=== PATIENT | male | born 1930 | race Caucasian/White ===

== ENCOUNTER 2017-02-21 15:30 | Observation (INO) | payer MEDICARE ==
[~2017-02-21] VITALS: Ht 180.3 cm; Wt 95.9 kg
[~2017-02-21 15:30] MED LIST: CALC300T5 PO; CHOL10002 PO; CIPR500T86 PO; HYDR-3101 PO; INSU100V8 SQ; METF500T4 PO; RAMI5CAP21 PO; TAMS-14 PO; VIT1CAPS40 PO
--- NOTE | 2017-02-21 15:41 | NUR ---
ARRIVAL PATIENT TO ER ROOM 3 WITH COMPLAINTS OF SUPRAPUBIC ABDOMINAL PAIN DR HERNANDEZ AT BEDSIDE
--- NOTE | 2017-02-21 15:57 | ER.PDOC ---
General Chief Complaint: Abdomen Pain Stated Complaint: LOWER ABD PAIN Time seen by MD: 16:00 Source: patient History of Present Illness Timing/Duration: 24 hours Severity/Quality: moderate Radiation: no radiation Associated Symptoms: denies symptoms Allergies: Coded Allergies: No Known Allergies (Unverified , 02/01/14) Home Meds Active Scripts Hydrocodone Bit/Acetaminophen (NORCO 7.5-325) 1 Each Tablet, 1 EACH PO Q4H Y for PAIN, #10 TAB Prov:KAIT DE SOUZA MD 02/23/14 Ciprofloxacin Hcl (CIPRO) 500 Mg Tablet, 1 TAB PO BID, #20 TAB Prov:KAIT DE SOUZA MD 02/23/14 Reported Medications Vit C/E/Zn/Coppr/Lutein/Zeaxan (Preservision Areds 2 Softgel) 1 Each Capsule, 1 EACH PO BID, CAPSULE 02/01/14 Metformin Hcl (METFORMIN HCL) 500 Mg Tablet, 1 TAB PO BID, #60 TAB 3 Refills 02/01/14 Ramipril 5MG (ALTACE 5MG) 5 Mg Capsule, 5 MG PO HS, CAPSULE 02/01/14 Cholecalciferol (Vitamin D3) (VITAMIN D) 1,000 Unit Tablet, 1000 UNIT PO DAILY, TABLET 02/01/14 Calcium Carbonate (TUMS) 300 Mg Tab.chew, 500 MG PO QID Y for INDIGESTION, TAB.CHEW 02/01/14 Tamsulosin Hcl (FLOMAX) 0.4 Mg Cap.er.24h, 0.4 MG PO DAILY 02/01/14 Insulin Glargine,Hum.rec.anlog (LANTUS) 100 Unit/1 Ml Vial, 25 UNIT SQ HS, VIAL 02/01/14 Vital Signs First Vital Signs Date Time Temp Pulse Resp B/P (MAP) Pulse Ox O2 Delivery O2 Flow Rate FiO2 02/21/17 15:41 88 18 95 02/21/17 15:44 183/89 (120) Last Vital Signs Date Time Temp Pulse Resp B/P (MAP) Pulse Ox O2 Delivery O2 Flow Rate FiO2 02/21/17 15:44 88 18 183/89 (120) 95 Past Medical History Medical History: diabetes, hypertension Social History Smoking: other Alcohol Use: none Drug Use: none Constitutional: no symptoms reported EENTM: no symptoms reported Respiratory: no symptoms reported Cardiovascular: no symptoms reported Gastrointestinal: see HPI Musculoskeletal: no symptoms reported Skin: no symptoms reported Psychiatric/Neurological: no symptoms reported All Other Systems: Reviewed and Negative Physical Exam General Appearance: No Apparent Distress, WD/WN HEENT: PERRL/EOMI, Normal ENT Inspection, TMs Normal, Pharynx Normal Neck: Non-Tender, Full Range of Motion, Supple, Normal Inspection Respiratory: chest non-tender, lungs clear, normal breath sounds, no respiratory distress, no accessory muscle use Cardiovascular: Normal Peripheral Pulses, Regular Rate, Rhythm, No Edema, No Gallop, No JVD, No Murmur Gastrointestinal: Normal Bowel Sounds, Non Tender, Soft Back: Normal Inspection, No CVA Tenderness, No Vertebral Tenderness Extremities: Normal Range of Motion, Non-Tender, Normal Inspection, No Pedal Edema, No Calf Tenderness, Normal Capillary Refill, Pelvis Stable 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
[2017-02-21] MEDS ORDERED: NORCO 10-325 TABLET PO PRN (16:00)
[2017-02-21 16:09] LABS: BASOPHIL % 0.4 % (0.0-0.2); EOSINOPHIL # 0.1 10^3/uL (0.0-0.2); EOSINOPHIL % 0.5 % (0.0-5.0); LYMPHOCYTES # 1.5 10^3/uL (1.0-4.8); LYMPHOCYTES % 13.8 % (24.0-44.0); MEAN CELL HGB CONCENTRATION 33.5 g/dL (33-37); MEAN CORP VOLUME 89.5 fL (78-100); MEAN PLATELET VOLUME 10.8 fL (7.8-11.0); MONOCYTES # 1.1 10^3/uL (0.3-0.8); MONOCYTES % 10.2 % (5.0-12.0); NEUTROPHIL # 8.3 10^3/uL (1.8-7.7); NEUTROPHILS % 74.8 % (41.0-85.0); RED CELL DISTRIBUTION WIDTH 13.3 % (11.5-14.5); WHITE BLOOD CELL 11.1 10^3/uL (4.5-11.0)
--- NOTE | 2017-02-21 16:10 | NUR ---
CT PATIENT TO RADIOLOGY FOR CT
[2017-02-21] MEDS ORDERED: NORCO 10-325 TABLET PO ONE (16:24)
[2017-02-21 16:25] LABS: CALCIUM 9.3 mg/dL (8.4-10.5); CARBON DIOXIDE 27.1 mmol/L (20.0-32)
--- NOTE | 2017-02-21 16:55 | DIREP ---
PROCEDURE:CT ABDOMEN/PELVIS W/O CONTRAST COMPARISON:None. INDICATIONS:LLQ PAIN TECHNIQUE:Axial images were created through the abdomen and pelvis without intravenous contrast material. No oral contrast was administered. Sagittal and coronal reconstructions were performed from source images. FINDINGS: LUNG BASES:Coronary artery calcium and/or stents LIVER:Normal. No significant liver lesions are identified. BILIARY:Normal. No visible dilatation or calcification. PANCREAS:Normal. No lesion, fluid collection, ductal dilatation, or atrophy. SPLEEN:Normal. No enlargement or focal lesion. ADRENALS:Normal. No mass or enlargement. URINARY TRACT:Mild left hydronephrosis AORTA/VASCULAR:Normal. No aneurysm. RETROPERITONEUM:Normal. No mass or adenopathy. BOWEL/MESENTERY: Nonspecific increased density in the mesenteric fat with few nonenlarged lymph nodes ABDOMINAL WALL:Normal. No mass or hernia. PELVIC ORGANS: The transverse diameter of the prostate is 6.8 cm BONES:Degenerative change in the lumbar spine without lytic or sclerotic bone lesion. Right hip prosthesis OTHER:Negative. CONCLUSION: 1. Mild left hydronephrosis. No obstructing stone is identified. The prostate is enlarged. 2. There is colonic diverticulosis without evidence of diverticulitis. 3. Mild region of increased density in the mesenteric fat with few nonenlarged lymph nodes. This could be related to acute or chronic inflammatory process. Dictated by: Hardeep Goldman Jr. on 02/21/2017 at 04:47 PM
--- NOTE | 2017-02-21 17:30 | NUR ---
dr hinds on phone with dr bell
[2017-02-21] MEDS ORDERED: MORPHINE SULFATE IV PRN (18:00)
[2017-02-21 19:00] LABS: BILIRUBIN,URINE NEGATIVE (NEGATIVE); UROBILINOGEN,URINE NORMAL (NEGATIVE)
[2017-02-21 19:18] LABS: APPEARANCE,URINE CLOUDY (CLEAR); UA COLOR YELLOW (YELLOW)
[2017-02-21 19:27] LABS: WBC,URINE TNTC WBC/HPF (0-2); YEAST,URINE MODERATE
[2017-02-21] MEDS ORDERED: ALTACE PO SCH (21:00)
[2017-02-21] MEDS ORDERED: TUMS PO PRN (21:00)
[2017-02-21] MEDS ORDERED: LANTUS SQ SCH (21:00)
[2017-02-21] MEDS: THERA PO SCH (21:00)
[2017-02-21] MEDS ORDERED: ALTACE ONE (21:40)
[2017-02-21] MEDS: GLUCOPHAGE PO SCH (21:41)
[2017-02-22] VITALS (8 sets, daily range): BP systolic 108–137; BP diastolic 57–93
[2017-02-22] MEDS: NORCO 5 MG PO PRN ×2 (00:10→05:57)
[2017-02-22] MEDS ORDERED: ZOFRAN ONE ×2 (00:26→09:06)
--- NOTE | 2017-02-22 00:41 | NUR ---
patient was standing out in [place] stated hurting medication given , patient hasd been pushing wrong button for call light reorientation to call light use ,
[2017-02-22] MEDS ORDERED: ZOFRAN IV PRN ×3 (01:00→13:00)
[2017-02-22] MEDS ORDERED: MORPHINE SULFATE ONE (02:51)
--- NOTE | 2017-02-22 03:18 | NUR ---
patient with pain to left lower abd area , bladder scanned patient patient 322 largest amount seen in bladder well continue to monitor
--- NOTE | 2017-02-22 06:50 | PRM.ACF1 ---
Admission Criteria Forms ABDOMINAL PAIN Clinical Indications for Admission to Inpatient Care ( absentee-shawnee/check or initial the applicable condition/criteria): Admission is indicated for ANY ONE of the following (1)(2)(3)(4)(5)(6): [ ]I. Surgery needed that cannot be performed on ambulatory basis [ ]II. Peritoneal signs present (eg, rebound tenderness, rigidity) [ ]III. Evaluation requires patient to not eat or drink for extended period ( eg, more than 24 hours). [X]IV. Inpatient admission required[B] rather than observation care (see Abdominal Pain: Observation Care guideline as appropriate) because of ANY ONE of the following(7)(8)(9): [ ] a) Hemodynamic instability [X]b) Severe pain requiring acute inpatient management [ ]c) Identification of etiology or finding that requires inpatient care (eg, aortic dissection, free air,bowel ischemia)(10) [ ]d) Absent bowel sounds with complete ileus (11) [ ]e) Signs of intestinal obstruction[C] [ ]f) Suspected toxic megacolon [ ]g) Severe electrolyte abnormalities requiring inpatient care [ ]h) High fever or infection requiring inpatient admission as indicated by ANY ONE of the following (12)(13): [ ]i) Appropriate outpatient or observation care antimicrobial treatment unavailable, not effective, or not feasible [ ]ii) Documented bacteremia [ ]iii) Temperature greater than 104.9 degrees F (40.5 degrees C) (oral) [ ]iv) Temperature greater than 103.1 degrees F (39.5 degrees C) ( oral) or less than 96.8 degrees F (36 degrees C) (rectal) that does not respond to all emergency treatment measures [ ]i) IV fluid required rather than oral rehydration to replace significant ongoing (eg, for greater than 24 hours) losses (greater than 3 L/m2 per day)(14)(15) [ ]j) Percutaneous or open drainage (eg, abscess, biliary tract) procedures [ ]k) Parenteral nutrition regimen that must be implemented on inpatient basis [ ]l) Other condition, treatment, or monitoring requiring inpatient admission Extended stay beyond goal length of stay may be needed for (1)(3)(4)(10)(16): [ ]a) Surgery (e.g., colectomy, revascularization procedure) [ ]b) Persistent abdominal pain with suspected intra-abdominal process [ ]c) Diagnosed condition requiring continued stay (e.g., pancreatitis, complicated diverticulitis) The original [facility] content created by Peter Prieto has been revised. The portions of the content which have been revised are identified through the use of italic text, and [facility] has neither reviewed nor approved the modified material.All other unmodified content is copyright [facility]. Please see references footnoted in the original [facility] edition 2015 Is [facility]/Peter's added/comple: YES GILDA SMITH [facility] Feb 22, 2017 06:50
[2017-02-22] MEDS ORDERED: SODIUM CHLORIDE IR ONE ×2 (07:19)
[2017-02-22] MEDS ORDERED: LACTATED RINGERS 1,000 ML ONE (07:27)
[2017-02-22] MEDS ORDERED: LEVEMIR SQ SCH ×2 (08:26→21:00)
[2017-02-22] MEDS ORDERED: ZESTRIL PO SCH ×2 (08:29→21:00)
[2017-02-22] MEDS: GLUCOPHAGE PO SCH (09:00)
[2017-02-22] MEDS ORDERED: FLOMAX PO SCH (09:00)
[2017-02-22] MEDS ORDERED: LEVAQUIN 100 ML IV SCH (09:00)
[2017-02-22] MEDS: THERA PO SCH (09:00)
[2017-02-22] MEDS ORDERED: VITAMIN D PO SCH (09:00)
[2017-02-22] MEDS ORDERED: LACTATED RINGERS IV SCH ×2 (09:00→21:00)
--- NOTE | 2017-02-22 09:00 | NUR ---
Pt off unit Pt left unit via stretcher with OR staff member.
[2017-02-22] MEDS ORDERED: TORADOL ONE (09:06)
[2017-02-22] MEDS ORDERED: XYLOCAINE ONE (09:06)
[2017-02-22] MEDS ORDERED: SUBLIMAZE ONE (09:07)
[2017-02-22] MEDS ORDERED: QUELICIN ONE (09:07)
[2017-02-22] MEDS ORDERED: DIPRIVAN IV ONE (09:07)
[2017-02-22] MEDS ORDERED: DILAUDID ONE (09:44)
[2017-02-22] MEDS ORDERED: MORPHINE SULFATE IV PRN ×2 (10:00→14:00)
[2017-02-22] MEDS ORDERED: LACTATED RINGERS 1,000 ML IV SCH ×4 (10:00→11:30)
[2017-02-22] MEDS ORDERED: SUBLIMAZE IV PRN (10:00)
[2017-02-22] MEDS ORDERED: DILAUDID IV PRN (10:00)
[2017-02-22] MEDS ORDERED: EPHEDRINE SULFATE ONE (11:21)
[2017-02-22] MEDS ORDERED: NORCO 7.5MG PO PRN ×2 (11:30)
--- NOTE | 2017-02-22 11:58 | OPH ---
DATE OF SURGERY: 02/22/2017 PREOPERATIVE DIAGNOSIS: Left hydronephrosis. 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 PROCEDURES: Cystoscopy, left retrograde and attempted insertion of left double-J ureteral stent. DESCRIPTION OF PROCEDURE: The patient was brought to the cystoscopy room and was put in supine position on the cystoscopy table. After the patient was given a satisfactory and adequate LMA general anesthesia, the patient was placed in the lithotomy position. The genitalia was then prepped and draped aseptically in the usual manner. First, a 22-Brazilian cystoscope was inserted per urethra up to the bladder. With the use of the right angle lens, the bladder was visualized. There was a lot of congestion noted in the bladder wall. No evidence of tumor, no calculi seen. Initially, left retrograde was then performed by inserting a 7-Brazilian ureteral catheter in the left orifice, injected with a dye and it showed a tortuous distal ureter with severe stricture with hydroureter. Insertion of double-J ureteral stent was then attempted, but due to the severe stricture, the Glidewire would not even go up to the upper ureter. So, at this juncture, the procedure was terminated. The bladder was emptied with fluid and instrument was removed and the patient was then awakened, was transferred to the recovery room in stable condition. Jacky Goldberg MD DR: LETTY/sonia JOB# [id number]
[2017-02-22] MEDS ORDERED: TUMS PO PRN (13:00)
[2017-02-22] MEDS ORDERED: NORCO 5 MG PO PRN (14:00)
--- NOTE | 2017-02-22 14:22 | DIREP ---
PROCEDURE:XRAY UROGRAPHY RETROGRADE COMPARISON:[facility], CT, CT ABD/PELVIS W/O, 02/21/2017, 04:03 PM. INDICATIONS:LEFT RENAL CALCULI, 52.44 mGy, 139.1 SECOND FLUORO TIME TECHNIQUE:Left retrograde urography was obtained. 9 seconds of fluoroscopic time was used. FINDINGS: Left retrograde pyelography demonstrated no evidence of intraluminal filling defect or stricture in the left ureter. The left renal collecting system appear normal. Some of the cases signal were not fully opacified, probably due to incomplete filling. The distal left ureter has a J-shaped/"Fish hook" configuration, suggestive of prostate gland enlargement. Degenerative changes are noted in the lumbar spine. CONCLUSION: 1. No evidence of focal intraluminal filling defect in the left ureter on retrograde pyelography. 2. Configuration of the distal left ureter is consistent with prostate gland enlargement. Dictated by: Pollo Peterson M.D. on 02/22/2017 at 02:17 PM
[2017-02-22] MEDS ORDERED: NORCO 10-325 TABLET PO PRN (16:00)
[2017-02-22] MEDS ORDERED: CIPR500T86 PO (16:22)
[2017-02-22] MEDS ORDERED: THERA PO SCH (21:00)
[2017-02-22] MEDS ORDERED: GLUCOPHAGE PO SCH (21:00)
[2017-02-23] MEDS ORDERED: LEVAQUIN 100 ML IV SCH (09:00)
[2017-02-23] MEDS ORDERED: VITAMIN D PO SCH (09:00)
[2017-02-23] MEDS ORDERED: FLOMAX PO SCH (09:00)
[2017-02-23] MEDS ORDERED: MORPHINE SULFATE IV PRN (10:00)
[2017-02-23] MEDS ORDERED: ZOFRAN IV PRN (10:00)
[2017-02-23] MEDS ORDERED: SUBLIMAZE IV PRN (10:00)
[2017-02-23] MEDS ORDERED: DILAUDID IV PRN (10:00)
== END 2017-02-22 16:00 | disposition still patient (30) ==
LOC: ER 15:30 → MS 18:06
PROVIDERS: ADMIT Urology; ATTEND Urology
DX: N13.30 Unspecified hydronephrosis (principal); E11.9 Type 2 diabetes mellitus without complications; I10 Essential (primary) hypertension
CPT/HCPCS: 36415; 52332; 74176; 74420; 76000; 80053; 81000; 82150; 82948 ×3; 83690; 85025; 85610; 85730; 86677; 87086; 96365; 96366; 96372; 96375; 99285; G0378 ×22; J0330; J1170; J1885; J2270; J2405 ×2; J3010; J3490 ×4; J7030 ×2; J7120 ×2; Q9966; C1758; C1769

== ENCOUNTER 2019-01-17 12:41 | Emergency (ER) | payer MEDICARE, OTHER ==
[~2019-01-17] VITALS: Ht 180.3 cm; Wt 95.3 kg
[~2019-01-17 12:41] MED LIST changes: +METF500T17 PO; -METF500T4 PO; -RAMI5CAP21 PO; +RAMI5CAP37 PO
[2019-01-17 13:11] VITALS: BP 127/71
--- NOTE | 2019-01-17 13:35 | DIREP ---
PROCEDURE:XRAY HAND MIN 3 VW-RT COMPARISON:None. INDICATIONS:fall FINDINGS: BONES:Three views of the right hand. Fracture of the distal shaft of the 5th metatarsal with overlapping fragments. Displacement and angulation identified with apex being along the posterior and lateral aspects. A lucency identified involving the tip of the radial styloid question acute or subacute fracture. JOINTS:Degenerative narrowing of the interphalangeal joints. SOFT TISSUES:Normal. OTHER:No additional findings. Metallic pin like density at the level the proximal interphalangeal joint of the right index finger, question foreign body. CONCLUSION:Angled and mildly displaced fracture of the distal shaft of the right 5th metacarpal. Suspected fracture of the tip of the radial styloid. Obtained like density at the level of the proximal interphalangeal joint of the right index finger, question foreign body. Degenerative narrowing of the interphalangeal joints. No erosive arthritis is seen. Dictated by: Paulo Amezquita MD on 01/17/2019 at 01:33 PM
--- NOTE | 2019-01-17 14:54 | ER.PDOC ---
General Chief Complaint: Trauma Stated Complaint: R HAND PAIN Time seen by MD: 15:00 Source: patient Exam Limitations: no limitations History of Present Illness Timing/Duration: 24 hours Severity/Quality: mild, moderate Radiation: no radiation Exacerbated by: movements Allergies: Coded Allergies: No Known Allergies (Unverified , 02/01/14) Home Meds Active Scripts Ciprofloxacin Hcl (CIPRO) 500 Mg Tablet, 500 MG PO BID, #14 Prov:KAIT DE SOUZA MD 02/22/17 Reported Medications Vit C/E/Zn/Coppr/Lutein/Zeaxan (Preservision Areds 2 Softgel) 1 Each Capsule, 1 EACH PO BID, CAPSULE 02/01/14 Metformin Hcl (METFORMIN HCL) 500 Mg Tablet, 1 TAB PO BID, #60 TAB 3 Refills 02/01/14 Ramipril 5MG (ALTACE 5MG) 5 Mg Capsule, 5 MG PO HS, CAPSULE 02/01/14 Cholecalciferol (Vitamin D3) (VITAMIN D) 1,000 Unit Tablet, 1000 UNIT PO DAILY, TABLET 02/01/14 Calcium Carbonate (TUMS) 300 Mg Tab.chew, 500 MG PO QID PRN for INDIGESTION, TAB.CHEW 02/01/14 Tamsulosin Hcl (FLOMAX) 0.4 Mg Cap.er.24h, 0.4 MG PO DAILY 02/01/14 Insulin Glargine,Hum.rec.anlog (LANTUS) 100 Unit/1 Ml Vial, 25 UNIT SQ HS, VIAL 02/01/14 Vital Signs First Vital Signs Date Time Temp Pulse Resp B/P (MAP) Pulse Ox O2 Delivery O2 Flow Rate FiO2 01/17/19 13:06 98.4 71 18 94 Room Air 98.4 01/17/19 13:11 127/71 (89) Last Vital Signs Date Time Temp Pulse Resp B/P (MAP) Pulse Ox O2 Delivery O2 Flow Rate FiO2 01/17/19 13:11 18 01/17/19 13:11 98.0 71 127/71 (89) 94 Room Air 98.0 Past Medical History Medical History: diabetes Surgical History: tonsillectomy, other Social History Smoking: non-smoker Alcohol Use: none Drug Use: none Reviewed Nursing Reviewed: Vital Signs, Abn. 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0 98.4 98.0 98.0 Pulse 71 71 71 Resp 18 18 18 18 B/P (MAP) 127/71 (89) Pulse Ox 94 94 O2 Delivery Room Air Room Air Sepsis Infection Criteria Pres: None O2 Sat by Pulse Oximetry: 94 Departure Time of Disposition: 16:00 Disposition: 01 HOME, SELF-CARE Impression: Primary Impression: Metacarpal bone fracture Condition: Improved Referrals: GUS ARREAGA POWER CLEANER OPERATOR (PCP) PRIMARY CARE PROVIDER Duration or Time Spent with Pa: 15 MIN ANGIE HERNANDEZ MD Jan 17, 2019 14:54
[2019-01-17 15:00] VITALS: BP 120/72
== END 2019-01-17 15:19 | disposition home or self-care (01) ==
LOC: ER 12:41
DX: S62.326A Displaced fracture of shaft of fifth metacarpal bone, right hand, initial encounter for closed fracture (principal); E11.9 Type 2 diabetes mellitus without complications; Z90.89 Acquired absence of other organs; Z79.4 Long term (current) use of insulin; Z79.2 Long term (current) use of antibiotics; Z79.899 Other long term (current) drug therapy; W19.XXXA Unspecified fall, initial encounter; Y93.89 Activity, other specified; Y92.89 Other specified places as the place of occurrence of the external cause; Y99.8 Other external cause status
CPT/HCPCS: 29125; 99284; 73130-RT